=== PATIENT | female | born 1985 | race Caucasian/White ===

== ENCOUNTER 2017-10-25 09:59 | Day surgery (SDC) | payer BC ==
[2017-10-25] MEDS: BUPIVACAINE 0.25%/EPI (MDV) 50 ML VIAL INJ
[~2017-10-25 09:59] MED LIST: CEFAZOLIN 1 GM INJ; LIDOCAINE 2% (SDV) 5 ML INJ; ROCURONIUM 50 MG INJ
[2017-10-25] MEDS ORDERED: SOD CHLORIDE 0.9% 1,000 ML IV (10:30)
[2017-10-25] MEDS ORDERED: CEFAZOLIN 2 GM/50 ML (PMX) 50 ML IVPB (10:30)
[2017-10-25] MEDS ORDERED: PROPOFOL 100 ML (12:33)
[2017-10-25] MEDS ORDERED: DEXAMETHASONE 4 MG/ML 1 ML INJ (12:46)
[2017-10-25] MEDS ORDERED: ONDANSETRON 4 MG INJ (12:47)
[2017-10-25] MEDS ORDERED: POLYMYXIN/BACITRACIN 1L IRRIG (13:29)
[2017-10-25] MEDS ORDERED: NEOSTIGMINE 3 MG/3 ML SYRINGE (13:35)
[2017-10-25] MEDS ORDERED: GLYCOPYRROLATE 0.4 MG INJ (13:35)
[2017-10-25] MEDS ORDERED: MIDAZOLAM 1 MG/ML 2 ML INJ IV (14:00)
[2017-10-25] MEDS ORDERED: EPHEDrine SULFATE 50 MG/5 ML SYG IV (14:00)
[2017-10-25] MEDS ORDERED: LABETALOL HCL 20MG INJ IV (14:00)
[2017-10-25] MEDS ORDERED: DIPHENHYDRAMINE 50 MG INJ IV (14:00)
[2017-10-25] MEDS ORDERED: OXYCODONE/ACETAMINOPHEN (5/325) TAB PO ×2 (14:00)
[2017-10-25] MEDS ORDERED: FENTAnyl 50 MCG/ML VIAL IV ×3 (14:00)
[2017-10-25] MEDS ORDERED: hydrALAzine 20 MG INJ IV (14:00)
[2017-10-25] MEDS ORDERED: IBUPROFEN 600 MG TAB PO (14:00)
[2017-10-25] MEDS ORDERED: HYDROmorphONE (0.2 MG/ML) 10ML SYG IV (14:00)
[2017-10-25] MEDS ORDERED: ALBUTEROL 0.083% (NEB) 2.5 MG/3 ML AMP HHN (14:00)
[2017-10-25] MEDS ORDERED: MEPERIDINE 25 MG INJ IV (14:00)
[2017-10-25] MEDS ORDERED: ONDANSETRON 4 MG INJ IV ×2 (14:00)
[2017-10-25] MEDS ORDERED: KETOROLAC 30 MG INJ IV ×2 (14:00)
[2017-10-25] MEDS ORDERED: METOCLOPRAMIDE 10 MG INJ IV (14:00)
[2017-10-25] MEDS: HYDROmorphONE (0.2 MG/ML) 10ML SYG IV ×2 (14:09→14:17)
== END 2017-10-25 15:44 | disposition home or self-care (01) ==
LOC: SDS 09:59
DX: N80.6 Endometriosis in cutaneous scar (principal); E66.9 Obesity, unspecified; Z68.29 Body mass index [BMI] 29.0-29.9, adult
CPT/HCPCS: 14000; 84703; 88304; 88307